=== PATIENT | female | born 1955 | race Caucasian/White ===

== ENCOUNTER 2024-04-18 10:18 | Inpatient (IN) | payer MEDICARE, SELFPAY ==
[2024-04-18 10:18] VITALS: BP 112/57; PULSE 78; RESP 14; TEMP 36.8; O2SAT 96; BMI 31.3
--- NOTE | 2024-04-18 10:25 | RAD_ITS ---
STUDY: X-RAY - PELVIS AND LEFT HIP REASON FOR EXAM: Female, 69 years old. Fall w/ left hip pain TECHNIQUE: 3 views of the pelvis and hip. COMPARISON: None. FINDINGS: There is a non-specific bowel gas pattern. Normal visualized soft tissue structures. Normal bilateral iliac wings, sacroiliac joints and visualized sacrum. Normal bilateral superior and inferior pubic rami. Normal pubic symphysis. Normal bilateral ischial tuberosities. Nondisplaced left intertrochanteric fracture. RAD/HIP, UNI W/ Pelvis 2-3 Views IMPRESSION: Nondisplaced left intertrochanteric fracture. Electronically Signed: Irwin Oliveira MD at 11:32 EDT ,
--- NOTE | 2024-04-18 10:25 | RAD_ITS ---
STUDY: X-RAY CHEST REASON FOR EXAM: Female, 69 years old. Fall w/ left rib cage pain TECHNIQUE: Single AP portable view of the chest. COMPARISON: None. FINDINGS: The lungs are clear and expanded. There is no demonstrated pleural abnormality. Normal size heart. Normal mediastinum and jack. Normal visualized pulmonary arteries. There is atherosclerotic calcification of the aortic arch with tortuosity. Normal visualized thoracic spine. Normal visualized ribs, clavicles, and shoulders. There is no demonstrated abnormality of the visualized soft tissue structures of the upper abdomen. RAD/Chest 1 View IMPRESSION: Normal x-ray examination of the chest. Electronically Signed: Irwin Oliveira MD at 11:33 EDT ,
--- NOTE | 2024-04-18 10:26 | ED.VIS.LOWEX ---
HPI History of Present Illness HPI Narrative: 69-year-old female history of osteoporosis and prior uterine cancer with a hysterectomy. Tripped and fell today on her back patio just prior to arrival injuring her left lateral rib cage and left hip. Brought in by squad. Treated with IV fentanyl prior to arrival. Denies hitting her head. No LOC. No prefall illness. Denies other complaints. Chief Complaint: Lower Extremity Injury Informant: patient and family Occured/Mechanism Mechanism/Context: Yes injury and Yes blunt trauma Onset/Context/Timing Onset: Today Context: Sudden Onset Timing: Continuous Quality of Pain: Sharp Current Severity: Moderate Maximum Severity: Moderate Associated Symptoms Associated Symptoms: Negative for Parasthesia or Weakness Narrative Narrative: 69-year-old female fell on her back patio injuring her left hip and left rib cage. No LOC. No head injury. She is on no blood thinners. Prior similar symptoms: No Recent Illness/Hospitalization: No PFSH PFSH Medical History Uterine cancer Home Medications ?Medication ?Instructions ?Recorded ?Last Taken ?Type cholecalciferol (vitamin D3) 125 125 mcg PO DAILY 04/18/24 04/17/24 History mcg (5,000 unit) tablet (Vitamin D3) famotidine 20 mg tablet 20 mg PO DAILY 04/18/24 04/17/24 History multivitamin (Daily Multi-Vitamin 1 tab PO DAILY 04/18/24 04/17/24 History tablet) omega 7-qkn-evh-fish oil 1,200 mg 1 cap PO DAILY 04/18/24 04/17/24 History (144 mg-216 mg) capsule (Fish Oil) omeprazole 20 mg capsule,delayed 20 mg PO DAILY 04/18/24 04/17/24 History release simvastatin 20 mg tablet 20 mg PO QHS 04/18/24 04/17/24 History varenicline 0.5 mg (11)-1 mg (42) See Rx Instructions PO .COMPLEX 04/18/24 04/18/24 History tablets in a dose pack SMOKING CESSATION vitamin E 268 mg (400 unit) capsule 268 mg PO DAILY 04/18/24 04/17/24 History Allergy/AdvReac Type Severity Reaction Status Date / Time amoxicillin Allergy Hives Verified 04/18/24 10:19 Penicillins (PCN) Allergy Hives Verified 04/18/24 10:19 Social History Smoking Status: Unknown if ever smoked ROS ROS ED ROS Narrative Patient denies recent illness. Constitutional Constitutional ED: Denies chills or fever(s) Eyes Eyes: Denies blurry vision ENT ENT ED: Denies ear pain Cardiovascular Cardiovascular: Denies chest pain Respiratory/Chest Respiratory/Chest: Denies cough or dyspnea Gastrointestinal Gastrointestinal: Denies abdominal pain Genitourinary Genitourinary ED: Denies dysuria or hematuria Musculoskeletal Musculoskeletal: Denies arthralgias Integumentary Denies abscess Neurologic Neurologic: Denies headache(s) Psychiatric Psychiatric: Denies anxiety Endocrine Endocrinology: Denies polydipsia Hematologic/Lymphatic Hematologic/Lymphatic: Denies easy bleeding Allergic/Immunologic Allergic/Immunologic ED: Denies mouth swelling or tongue swelling EXAM Physical Exam Narrative Exam Narrative: 69-year-old female sitting upright in bed. Vital signs are stable afebrile. Pulse ox 96% on room air no hypoxia. H EENT exam pupils round reactive light. No trauma to her face or scalp. Nontender. No hematomas. Neck nontender. Trachea midline. Back and spine nontender. Lungs clear to auscultation bilaterally. Heart regular rhythm rate about 80 no murmur. Left lateral anterior lower rib cage tenderness. No ecchymosis or bruising. No subcu air or crepitance. Abdomen is soft and nontender. No bruising. No peritoneal signs. Pelvic girdle she has left hip tenderness. She has pain with any attempted passive or active range of motion left hip. She has limited range of motion of the left hip. Right hip is nontender. Left lower extremity appears to be shortened and rotated. Left knee lower leg ankle and foot are nontender. Normal sensation. Right lower extremities nontender normal range of motion. Normal strength. Neurologically she is awake and alert no focal motor deficits. Answering questions and following commands. Const Vital Signs: 04/18/24 10:18 04/18/24 11:42 Temperature 98.3 F 98 F Temperature Source Oral Pulse Rate 78 74 Respiratory Rate 14 14 Blood Pressure 112/57 L 114/51 L Blood Pressure Mean 75 72 Pulse Ox 96 97 Oxygen Delivery Method Room Air Positive well nourished and well developed; Negative for obese, cachectic, contractures or unkempt General Appearance ED: well developed; Negative for unkempt, cachectic, contractures or NAD Nutritional Appearance: Negative for cachectic or obese HEENT Reports moist mucous membranes normocephalic and atraumatic; Negative for trauma or tenderness Eyes PERRL Neck full ROM and supple Thyroid: Negative for tender Lymph Lymphatic: Negative for other Chest Wall inspection of chest normal; Negative for palpation of chest normal Chest Narrative: Left lateral and left lower anterior chest wall tenderness. Resp normal respiratory effort, no retractions and clear to auscultation bilaterally Auscultation: Negative for rales, rhonchi, wheezes or diminished lung sounds Cardio regular rate, regular rhythm, S1 normal heart sound, S2 normal heart sound and no murmurs Rate: Negative for bradycardia or tachycardic Rhythm: Negative for abnormal rhythm Bruits: Negative for other GI non-tender, non-distended and no masses Inspection: Negative for abdominal distention Auscultation: normoactive bowel sounds Palpation: soft; Negative for tender, guarding or rebound tenderness present Back/Spine no CVA tenderness General Back: Negative for CVA tenderness Cervical Spine: Negative for cervical spine tenderness Thoracic Spine / Upper Back: Negative for thoracic spinal tenderness Lumbar Spine / Lower Back: Negative for lumbar spinal tenderness Extremity normal to inspection and full ROM Extremity Narrative: Left hip tender. Decreased range of motion. Shortened and rotated. Tender to palpation. Left lower leg and foot nontender neurovascular intact. Neuro oriented x3 and CN's II-XII intact bilaterally Sensorium / Orientation: alert, oriented to person, oriented to place and oriented to time; Negative for orientation impaired, confused, lethargic or stuporous Motor Exam: strength 5/5 throughout Psych mental status grossly normal Appearance: Negative for unkempt Speech: No other Mood & Affect: Negative for anxious Skin no wounds Lesions: no lesions Rashes: no rashes Trauma: Negative for laceration or puncture MDM MDM MDM Narrative Medical decision making narrative: 69-year-old female fall with concern for a left hip fracture or dislocation. Also injured her left lateral rib cage concern for a left rib fracture versus chest wall contusion. X-rays are being obtained. Treated with morphine for pain and Zofran to prevent nausea. Repeat exam patient is doing well she was given another dose of morphine after having x-rays performed. She was instructed she has a left inner troches nondisplaced hip fracture. I did speak to Dr. Zain Caldwell and even though is not on-call he was willing to accept the patient. Hospitalist is on page for admission. Patient and family were very appreciative that the patient could stay here and be treated. Lab Data Attestation: I reviewed the patient's lab results. Lab results narrative: CBC shows white count 14.9. H&H 14 and 43. Platelets 392. PT/INR 13 and 1. Electrolytes show a gap of 6. BUN and creatinine are 19 and 0.9. Glucose 108. Labs: Laboratory Results - last 24 hr 04/18/24 10:05 WBC 14.9 H RBC 4.35 Hgb 14.4 Hct 43.8 MCV 100.7 H MCH 33.1 H MCHC 32.9 RDW Std Deviation 46.2 H RDW Coeff of Norma 12.3 Plt Count 392 MPV 9.9 Immature Gran % (Auto) 0.700 Neut % (Auto) 66.1 Lymph % (Auto) 19.3 [place] % (Auto) 6.5 Eos % (Auto) 6.9 H Baso % (Auto) 0.5 Absolute Neuts (auto) 9.8 H Absolute Lymphs (auto) 2.87 Nucleated RBC % 0 PT 13.0 INR 1.0 Sodium 142 Potassium 3.8 Chloride 108 H Carbon Dioxide 28.0 Anion Gap 5 BUN 19 H Creatinine 0.93 Estim Creat Clear Calc 54.45 Est GFR (MDRD) Af Amer 78 Est GFR (MDRD) Non-Af 64 BUN/Creatinine Ratio 20.5 H Glucose 108 H Calcium 9.7 Radiography Diagnostic Testing: Clinical Impression(s) from Imaging Studies Chest X-Ray 04/18/24 10:25 IMPRESSION: Normal x-ray examination of the chest. Electronically Signed: Irwin Oliveira MD at 11:33 EDT , Hip/Pelvis X-Ray 04/18/24 10:25 IMPRESSION: Nondisplaced left intertrochanteric fracture. Electronically Signed: Irwin Oliveira MD at 11:32 EDT , Discharge Plan Dx/Rx/DC Orders Clinical Impression: Fall, Closed fracture of left hip, Contusion of rib on left side, History of osteoporosis Disposition Disposition: Acute Care Hospital [facility]
[2024-04-18] MEDS: Ondansetron 4 MG/2 ML Vial IV (10:39)
[2024-04-18] MEDS: morphine 8 MG/ML Syringe 6 MG IV ×2 (10:39→11:25)
[2024-04-18 11:42] VITALS: BP 114/51; PULSE 74; RESP 14; TEMP 36.6; O2SAT 97
[2024-04-18 11:46] LABS: Absolute Lymphocyte Count 2.87 X10^3/uL (0.83-4.51); Absolute Neutrophil Count 9.8 X10^3/uL (2.0-7.7); Basophil# 0.08 X10^3/uL; Basophil% 0.5 % (0-1); Eosinophil# 1.02 X10^3/uL; Eosinophils% 6.9 % (0-5); Hematocrit 43.8 % (37-47); Hemoglobin 14.4 g/dL (12.0-15.0); Lymphocyte # 2.87 X10^3/ul (0.83-4.51); Lymphocyte % 19.3 % (19-41); Mean Corp Hgb Conc 32.9 g/dL (32-36); Mean Corpuscular Hgb 33.1 pg (27.0-32.0); Mean Corpuscular Volume 100.7 fL (81-99); Mean Platelet Vol. 9.9 fl (6.2-12.0); Monocyte# 0.97 X10^3/uL; Monocyte% 6.5 % (0-10); NRBC Flagged by Analyzer 0 % (0-5); Neutrophil # 9.82 X10^3/uL (2.7-7.7); Neutrophil % 66.1 % (47-70); Platelet Count 392 K/mm3 (150-450); RBC Distribution Width CV 12.3 % (11.6-14.6); RBC Distribution Width SD 46.2 fl (35.1-43.9); Red Blood Count 4.35 M/mm3 (4.2-5.4); White Blood Count 14.9 K/mm3 (4.4-11.0)
[2024-04-18 12:02] LABS: Anion Gap 5 (5-15); BUN 19 mg/dL (7-18); BUN/Creat Ratio 20.5 RATIO (10-20); Calcium,Total 9.7 mg/dL (8.5-10.1); Chloride 108 mmol/L (98-107); Creatinine, Serum 0.93 mg/dL (0.55-1.02); EST Glomerular Filtration Rate 64 mL/min (>60); Est Glom Filt Rate - Afr Amer 78 mL/min (>60); Estimated Creatinine Clearance 54.45 ml/min; Glucose 108 mg/dL (74-106); Potassium 3.8 mmol/L (3.5-5.1); Sodium Level 142 mmol/L (136-145)
[2024-04-18 12:18] VITALS: BP 108/78; PULSE 68
--- NOTE | 2024-04-18 12:46 | PCM.HP.STD ---
HPI - General General Date of Service: 04/18/24 Chief Complaint: Hip pain HPI Narrative ADRIANO ROSEN, is a 69 F who presents with hip pain. Patient was walking when she tripped over a brick landed on her left side. Patient experienced pain in her hip as well as her ribs. She presented to the emergency room where was found have a left intertrochanteric hip fracture. ED reached out to Dr. Caldwell who would see the patient in consultation on the . Patient denies hitting her head. [facility] Medical History (Updated 04/18/24 @ 12:[address] Tian Amaro DO) Osteoporosis COPD exacerbation Uterine cancer Home Medications ?Medication ?Instructions ?Recorded ?Last Taken ?Type cholecalciferol (vitamin D3) 125 125 mcg PO DAILY 04/18/24 04/17/24 History mcg (5,000 unit) tablet (Vitamin D3) famotidine 20 mg tablet 20 mg PO DAILY 04/18/24 04/17/24 History multivitamin (Daily Multi-Vitamin 1 tab PO DAILY 04/18/24 04/17/24 History tablet) omega 8-gae-tgi-fish oil 1,200 mg 1 cap PO DAILY 04/18/24 04/17/24 History (144 mg-216 mg) capsule (Fish Oil) omeprazole 20 mg capsule,delayed 20 mg PO DAILY 04/18/24 04/17/24 History release simvastatin 20 mg tablet 20 mg PO QHS 04/18/24 04/17/24 History varenicline 0.5 mg (11)-1 mg (42) See Rx Instructions PO .COMPLEX 04/18/24 04/18/24 History tablets in a dose pack SMOKING CESSATION vitamin E 268 mg (400 unit) capsule 268 mg PO DAILY 04/18/24 04/17/24 History Allergy/AdvReac Type Severity Reaction Status Date / Time amoxicillin Allergy Hives Verified 04/18/24 10:19 Penicillins (PCN) Allergy Hives Verified 04/18/24 10:19 Social History (Updated 04/18/24 @ 12:[address] Tian Amaro DO) Smoking Status: Current every day smoker alcohol intake: former substance use type: does not use ROS ROS Narrative Does get short of breath with exertion but has been chronic. No chest pain with activity. All review of systems were negative except as mentioned above in the history of present illness and the other review of systems. Vital Signs Vital Signs Vital Signs: 04/18/24 10:18 04/18/24 11:42 04/18/24 12:18 Temperature 36.8 C 36.6 C Temperature Source Oral Pulse Rate 78 74 68 Respiratory Rate 14 14 Blood Pressure 112/57 L 114/51 L 108/78 Blood Pressure Mean 75 72 88 Pulse Ox 96 97 Oxygen Delivery Method Room Air Weight Weight: 75.2 kg Body Mass Index (BMI) 31.3 Physical Exam Const alert and no apparent distress HEENT normocephalic and head/scalp atraumatic Neck no lymphadenopathy Neck Narrative: No thyromegaly Resp normal respiratory effort, no retractions, no use of accessory muscles and clear to auscultation bilaterally Cardio regular rate, regular rhythm, S1 normal heart sound and S2 normal heart sound GI normal to inspection, nondistended, normoactive bowel sounds, soft to palpation, non-tender and non-distended Extremity Extremity Narrative: Shortened left lower extremity compared to the right. No edema. Neuro moves all extremities Sensorium / Orientation: awake Results Lab / Micro Data 04/18/24 10:05 04/18/24 10:05 Labs: Laboratory Results - last 24 hr 04/18/24 10:05: WBC 14.9 H, RBC 4.35, Hgb 14.4, Hct 43.8, MCV 100.7 H, MCH 33.1 H, MCHC 32.9, RDW Std Deviation 46.2 H, RDW Coeff of Norma 12.3, Plt Count 392, MPV 9.9, Immature Gran % (Auto) 0.700, Neut % (Auto) 66.1, Lymph % (Auto) 19.3, [place] % (Auto) 6.5, Eos % (Auto) 6.9 H, Baso % (Auto) 0.5, Absolute Neuts (auto) 9.8 H, Absolute Lymphs (auto) 2.87, Nucleated RBC % 0, PT 13.0, INR 1.0, Sodium 142, Potassium 3.8, Chloride 108 H, Carbon Dioxide 28.0, Anion Gap 5, BUN 19 H, Creatinine 0.93, Estim Creat Clear Calc 54.45, Est GFR (MDRD) Af Amer 78, Est GFR (MDRD) Non-Af 64, BUN/Creatinine Ratio 20.5 H, Glucose 108 H, Calcium 9.7 Imaging Radiology Impression Chest X-Ray 04/18/24 10:25 IMPRESSION: Normal x-ray examination of the chest. Electronically Signed: Irwin Oliveira MD at 11:33 EDT , Hip/Pelvis X-Ray 04/18/24 10:25 IMPRESSION: Nondisplaced left intertrochanteric fracture. Electronically Signed: Irwin Oliveira MD at 11:32 EDT , Assessment & Plan Assessment/Plan (1) Closed fracture of left hip: PLAN: Status post mechanical fall. Bed rest. Consult Ortho. Check 25-hydroxy vitamin D level. Patient medically cleared to proceed with surgery. PT OT evaluate and treat postoperatively. Discussed with the patient and her family member, said I would dissipate her likely requiring senior living facility when things are all sudden done but will see how patient will spines with therapy. PLAN: Plan Chronic conditions COPD: Currently stable. Osteoporosis. Will be checking a 25-hydroxy vitamin D level because of hip fracture. VTE prophylaxis: SCDs for now. CODE STATUS:: Discussed with the patient. She wishes to be full code. Charges/Coding Visit Charges Inpatient E&M: 02855 Init Hosp L2
--- NOTE | 2024-04-18 13:00 | NURSING ---
MED SURG FALL, LEFT HIP FX, LEFT RIB CONTUSION BLACK
[2024-04-18 13:30] VITALS: BP 120/95; PULSE 78; RESP 18; TEMP 37.2; O2SAT 98
[2024-04-18 13:38] VITALS: BMI 23.8
[2024-04-18 14:13] LABS: AST(SGOT) 28 U/L (15-37); Alanine Aminotransfer ALT/SGPT 24 U/L (13-56); Albumin, Serum 3.5 g/dL (3.2-5.0); Alkaline Phosphatase 88 U/L (45-117); Anion Gap 6 (5-15); BUN 19 mg/dL (7-18); BUN/Creat Ratio 23.2 RATIO (10-20); Calcium,Total 9.5 mg/dL (8.5-10.1); Chloride 108 mmol/L (98-107); Creatinine, Serum 0.82 mg/dL (0.55-1.02); EST Glomerular Filtration Rate 74 mL/min (>60); Est Glom Filt Rate - Afr Amer 89 mL/min (>60); Estimated Creatinine Clearance 57.49 ml/min; Globulin 3.5 g/dL (2.2-4.2); Glucose 111 mg/dL (74-106); Sodium Level 138 mmol/L (136-145)
[2024-04-18 14:14] LABS: Vitamin D,25 Hydroxy 90.8 ng/mL
[2024-04-18] MEDS: oxyCODONE 5 MG Tablet PO ×2 (15:23→20:45)
[2024-04-18] MEDS: Morphine 2 MG/ML Syringe IV (17:36)
[2024-04-18 20:24] VITALS: BP 121/64; PULSE 92; RESP 18; TEMP 36.9; O2SAT 92
[2024-04-18] MEDS: MELATONIN 10 MG TABLET 5 MG PO (20:45)
[2024-04-18] MEDS: Acetaminophen 325 MG Tablet 650 MG PO (20:45)
[2024-04-18] MEDS: Senna/Docusate Sodium 1 Tablet 2 TABLET PO (20:46)
[2024-04-18] MEDS: Atorvastatin Calcium 10 MG Tablet PO (20:46)
[2024-04-18] MEDS: Varenicline 0.5 MG Tablet PO (20:46)
[2024-04-19] VITALS (14 sets, daily range): BP systolic 113–157; BP diastolic 49–88; PULSE 74–95; RESP 16–18; TEMP 36.3–37.4; O2SAT 2–98; BMI 23.7
[2024-04-19] MEDS: Morphine 2 MG/ML Syringe IV ×2 (02:56→12:53)
[2024-04-19] MEDS: 0.9% Saline Lock 10 ML Syringe IV (02:56)
[2024-04-19] MEDS: oxyCODONE 5 MG Tablet PO (05:34)
[2024-04-19] MEDS: Acetaminophen 325 MG Tablet 650 MG PO (05:35)
--- NOTE | 2024-04-19 06:00 | EKG12_ITS ---
Test Reason : PRE-OP Blood Pressure : / mmHG Vent. Rate : 088 BPM Atrial Rate : 000 BPM P-R Int : 000 ms QRS Dur : 076 ms QT Int : 364 ms P-R-T Axes : 000 050 075 degrees QTc Int : 440 ms Normal sinus rhythm Cannot rule out Septal infarct , age undetermined Abnormal ECG No previous ECGs available Confirmed by Sergei Myles ([id number]), dictionary editor KILLIAN DOS SANTOS ([id number]) on 04/22/2024 1:39:32 PM Referred By: AROLDO Confirmed By:Sergei Myles
[2024-04-19 06:18] LABS: Absolute Lymphocyte Count 1.84 X10^3/uL (0.83-4.51); Absolute Neutrophil Count 6.1 X10^3/uL (2.0-7.7); Basophil# 0.04 X10^3/uL; Basophil% 0.4 % (0-1); Eosinophil# 0.16 X10^3/uL; Eosinophils% 1.7 % (0-5); Hematocrit 36.2 % (37-47); Lymphocyte # 1.84 X10^3/ul (0.83-4.51); Lymphocyte % 19.8 % (19-41); Mean Corp Hgb Conc 33.1 g/dL (32-36); Mean Corpuscular Hgb 33.3 pg (27.0-32.0); Mean Corpuscular Volume 100.6 fL (81-99); Mean Platelet Vol. 9.1 fl (6.2-12.0); Monocyte# 1.15 X10^3/uL; Monocyte% 12.4 % (0-10); NRBC Flagged by Analyzer 0 % (0-5); Neutrophil # 6.07 X10^3/uL (2.7-7.7); Neutrophil % 65.4 % (47-70); Platelet Count 329 K/mm3 (150-450); RBC Distribution Width CV 12.3 % (11.6-14.6); RBC Distribution Width SD 46.1 fl (35.1-43.9); White Blood Count 9.3 K/mm3 (4.4-11.0)
--- NOTE | 2024-04-19 08:06 | PN.HOSP_ITS ---
Reason for Visit Reason for Visit: Diagnoses Fracture of unspecified part of neck of left femur, initial encounter for closed fracture (04/18/24) Subjective Subjective Finally able to get into a comfortable position. Objective Data Objective Data Vital Signs: Vital Signs Temp Pulse Resp BP Pulse Ox O2 Del Method 36.3 C L 83 16 118/52 L 92 Room Air 04/19/24 07:42 04/19/24 07:42 04/19/24 07:42 04/19/24 07:42 04/19/24 07:42 04/19/24 07:42 Oxygen Delivery Method Room Air Weight: 63.004 kg Body Mass Index (BMI) 23.8 Intake & Output: Intake and Output for Last 24 Hours 04/17/24 04/18/24 04/19/24 23:59 23:59 23:59 Intake Total 500 / 700 200 / 200 Output Total 375 / 375 Balance 500 / 700 -175 / -175 Lab / Micro Data 04/19/24 05:40 04/18/24 13:40 Labs: Laboratory Results - last 24 hr 04/18/24 10:05: WBC 14.9 H, RBC 4.35, Hgb 14.4, Hct 43.8, MCV 100.7 H, MCH 33.1 H, MCHC 32.9, RDW Std Deviation 46.2 H, RDW Coeff of Norma 12.3, Plt Count 392, MPV 9.9, Immature Gran % (Auto) 0.700, Neut % (Auto) 66.1, Lymph % (Auto) 19.3, [place] % (Auto) 6.5, Eos % (Auto) 6.9 H, Baso % (Auto) 0.5, Absolute Neuts (auto) 9.8 H, Absolute Lymphs (auto) 2.87, Nucleated RBC % 0, PT 13.0, INR 1.0, Sodium 142, Potassium 3.8, Chloride 108 H, Carbon Dioxide 28.0, Anion Gap 5, BUN 19 H, Creatinine 0.93, Estim Creat Clear Calc 54.45, Est GFR (MDRD) Af Amer 78, Est GFR (MDRD) Non-Af 64, BUN/Creatinine Ratio 20.5 H, Glucose 108 H, Calcium 9.7 04/18/24 13:40: Sodium 138, Potassium 4.0, Chloride 108 H, Carbon Dioxide 23.0, Anion Gap 6, BUN 19 H, Creatinine 0.82, Estim Creat Clear Calc 57.49, Est GFR (MDRD) Af Amer 89, Est GFR (MDRD) Non-Af 74, BUN/Creatinine Ratio 23.2 H, G lucose 111 H, Calcium 9.5, Total Bilirubin 0.70, AST 28, ALT 24, Alkaline Phosphatase 88, Total Protein 7.0, Albumin 3.5, Globulin 3.5, Albumin/Globulin Ratio 1.0, Vitamin D 25-Hydroxy 90.8 04/19/24 05:40: WBC 9.3, RBC 3.60 L, Hgb 12.0, Hct 36.2 L, MCV 100.6 H, MCH 33.3 H, MCHC 33.1, RDW Std Deviation 46.1 H, RDW Coeff of Norma 12.3, Plt Count 329, MPV 9.1, Immature Gran % (Auto) 0.300, Neut % (Auto) 65.4, Lymph % (Auto) 19.8, [place] % (Auto) 12.4 H, Eos % (Auto) 1.7, Baso % (Auto) 0.4, Absolute Neuts (auto) 6.1, Absolute Lymphs (auto) 1.84, Nucleated RBC % 0 Radiography Diagnostic Testing: Radiology Impression Chest X-Ray 04/18/24 10:25 IMPRESSION: Normal x-ray examination of the chest. Electronically Signed: Irwin Oliveira MD at 11:33 EDT , Hip/Pelvis X-Ray 04/18/24 10:25 IMPRESSION: Nondisplaced left intertrochanteric fracture. Electronically Signed: Irwin Oliveira MD at 11:32 EDT , Physical Exam Const alert and no apparent distress HEENT head/scalp atraumatic and moist oral mucous membranes Resp normal respiratory effort and no retractions Extremity normal to inspection and full ROM Neuro Sensorium / Orientation: awake and alert Assessment & Plan Assessment/Plan (1) Closed fracture of left hip: PLAN: Plan for OR today. Vitamin D level WNL. Medically stable for surgery. PLAN: Plan Chronic conditions * COPD: Currently stable. * Osteoporosis. * 25 OH-d level 90.8: no replacement needed. VTE prophylaxis: SCDs for now. CODE STATUS:: Discussed with the patient. She wishes to be full code. Charges/Coding Visit Charges Inpatient E&M: 35999 Subs Hosp L1
--- NOTE | 2024-04-19 10:18 | CASEMGMT ---
HEIKE FERNANDEZ Assessment Face to Face with patient for initial transition planning/care coordination assessment. RN JIM introduced self and role at [facility], pt voices understanding. Pt is A&Ox4 and is resting comfortably in bed and is calm. Care providers, pharmacy, and demographics verified. Admitting dx: Hip Fx LACE Strata: 1 PCP: Jenn Wisdom Specialists: Pt states that she sees a siphoner and a atlassian administrator but cannot recall the names Preferred Pharmacy: [facility] Insurance: [employer] [facility] Prescription Benefit: Yes LNOK: Chelsey Richter (FREDY), Joe Richter (Son [place]), Adult Son Living Arrangements: Pt lives with her adult son in a 2 story home with 3 steps to enter ADLs/IADLs: Reports ind at [facility] Transportation: Self normally, family. Denies concerns DME: BP monitor. Denies further uses. Pt may benefit from a FWW at [place] A verbal list of local in-network DME companies provided to the pt at this time. Pt prefers [facility]. HHC/SNF: Denies history or needs Pt?s goal: Home Plan: TBD. Hip Surgery today at 1530. PT to evaluate subsequently. Pt plans to DC home with her family support once medically ready. Pt states that her Son, YOVANY, and daughter will be able to help the pt at home. CM to follow for FWW, HH, and/or OP Tx needs. Report given to TEJAS BURROUGHS CM. Kenia Sheffield RN, CM
--- NOTE | 2024-04-19 10:30 | CASEMGMT ---
Discharge Planning A list of HH providers including quality and resource use data and consistent with the patient's preferred geographic region, medical needs, and insurance network was created in [employer] Guide.? This list was provided to the Luana Engle Discharge Planning Asst.
--- NOTE | 2024-04-19 13:57 | PRE.ANES_ITS ---
ASA Classification* ASA Classification ASA Classification: 2 Assessment & Plan Anesthesia* Anesthesia Assessment Anesthesia Assessment: Discussed sedation and/or anesthesia options, risks, benefits, and alternatives with patient/parents/legal guardian/POA. Questions invited. The patient/parents/legal guardian/POA seems to understand and agrees to proceed with anesthesia plan. Reviewed the physical assessment, medical history, allergy history and patient home medications list prior to surgery/procedure/anesthetic and documented any changes. Performed airway and anesthesia risk assessments. Anesthesia Type Anesthesia Type: General Anesthesia Focused Assessment* Temperature: 97.3 F Pulse Rate: 83 Blood Pressure: 118/52 Respiratory Rate: 16 Pulse Ox: 92 Airway Assessment Mouth opens: >3 cm Mallampati Score: II Focused Labs Anesthesia Preop lab: CBC WBC 9.3 K/mm3 (4.4-11.0) 04/19/24 05:40 RBC 3.60 M/mm3 (4.2-5.4) L 04/19/24 05:40 Hgb 12.0 g/dL (12.0-15.0) 04/19/24 05:40 Hct 36.2 % (37-47) L 04/19/24 05:40 Plt Count 329 K/mm3 (150-450) 04/19/24 05:40 CHEMISTRY Potassium 4.0 mmol/L (3.5-5.1) 04/18/24 13:40 Sodium 138 mmol/L (136-145) 04/18/24 13:40 BUN 19 mg/dL (7-18) H 04/18/24 13:40 Creatinine 0.82 mg/dL (0.55-1.02) 04/18/24 13:40 Glucose 111 mg/dL (74-106) H 04/18/24 13:40 COAG PT 13.0 SECONDS (11.7-14.9) 04/18/24 10:05 Pre-Assessment Diagnosis/Proposed Procedure Planned Operative Procedure(s): IM Zen inter Troch Nail left hip fx Anesthesia History Anesthesia History - equal opportunity specialist: Anesthesia History - equal opportunity specialist Hx Hospitalization Any Problems With Anesthesia Yes: trouble waking up s/p 04/18/24 20:25 hysterectomy Cholinesterase deficiency No 04/18/24 20:25 You/Your Family Experience No 04/18/24 20:25 fever (hyperthermia) with Relationship Recent Exposure to Contagious No 04/18/24 20:25 Disease Does patient have nerve No 04/18/24 20:25 stimulator Patient instructed to have device shut off --Does patient have Pacemaker or ICD? When Was Last Pacemaker Check QUESTION #4 FULL TEXT: You/Your Family Experience fever (hyperthermia) with Anesthesia Last Oral Intake Last Oral intake: Last Oral Intake NPO since Meds taken in AM with sips of water? Meds patient instructed to take am of surgery PONV PONV - equal opportunity specialist: PONV - equal opportunity specialist Female HX of Motion Sickness HX of N/V After Surgery Non-Smoker Duration of Surgery greater than 60 minutes Number of Risk Factors PONV Score Height & Weight Height & Weight: Anesthesia: Height & Weight Height 5 ft 4 in 04/18/24 13:38 Weight: 63.004 kg 04/18/24 13:38 Body Mass Index (BMI) 23.8 04/18/24 13:38 Respiratory Assessment Respiratory Assessment - equal opportunity specialist: Respiratory Tract Infection Hx - equal opportunity specialist Hx Respiratory Tract Infection No 04/18/24 20:25 STOP Sleep Apnea STOP Sleep Apnea - equal opportunity specialist: STOP Sleep Apnea - equal opportunity specialist Hx Hypertension No 04/18/24 13:38 Hx Sleep Apnea No 04/18/24 13:38 CPAP BIPAP Do you snore loudly (louder No 04/18/24 13:38 than talking or can be heard Do you often feel tired/ Yes 04/18/24 13:38 fatigued/ sleepy during daytime? Has anyone observed you stop No 04/18/24 13:38 breathing during sleep? STOP Results Negative 04/18/24 13:38 QUESTION #5 FULL TEXT : Do you snore loudly (louder than talking or can be heard through closed doors)? 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 confused, unrespo /Reproduction History /Reproductive History - equal opportunity specialist: /Reproductive Hx- equal opportunity specialist Hx Now No 04/18/24 20:25 Gestational Age (in weeks): EDC: Hx Hx Para Hx Section SAB No 04/18/24 20:25 Active Medications Active Medications: Current Medications Generic Name Dose Route Start Last Admin Trade Name Freq PRN Reason Stop Dose Admin Acetaminophen 650 mg 04/18/24 13:26 04/19/24 05:35 Acetaminophen 325 Mg Tablet PO 650 mg Q6H PRN PRN Administration Pain 1-10 Or Fever >100.7 Atorvastatin Calcium 10 mg 04/18/24 22:00 04/18/24 20:46 Atorvastatin Calcium 10 Mg Tablet PO 10 mg QHS GEOVANNA Administration Cholecalciferol 125 mcg 04/19/24 10:00 Cholecalciferol (Vit D3) 125 Mcg Capsule (5,000 Units) PO DAILY GEOVANNA Famotidine 20 mg 04/19/24 10:00 Famotidine 20 Mg Tablet PO DAILY GEOVANNA Sodium Chloride 100 mls @ 15 mls/hr 04/18/24 13:46 IV .Q6H40M PRN Saline Flush Sodium Chloride 100 mls @ 15 mls/hr 04/18/24 13:46 IV .Q6H40M PRN Additional IVPB Infusion Cefazolin Sodium 2 gm/ N/A 20 mls @ 400 mls/hr 04/19/24 15:30 IV 04/19/24 15:32 PREOP ONE Ibuprofen 600 mg 04/18/24 13:26 Ibuprofen 600 Mg Tablet PO Q6H PRN PRN Pain Score 1-10 Melatonin 5 mg 04/18/24 17:25 04/18/24 20:45 Melatonin 10 Mg Tablet PO 5 mg QHS PRN Administration SLEEP Morphine Sulfate 2 - 4 mg 10/10/24 13:26 04/19/24 12:53 Morphine 2 Mg/Ml Syringe IV 2 mg Q3H PRN PRN Administration Pain Score 6-10 Ondansetron HCl 4 mg 04/18/24 13:26 Ondansetron 4 Mg/2 Ml Vial IV Q8H PRN PRN NAUSEA/VOMITING Oxycodone HCl 5 mg 04/18/24 13:26 04/19/24 05:34 Oxycodone 5 Mg Tablet PO 5 mg Q4H PRN PRN Administration Pain Score 4-10 Pantoprazole Sodium 20 mg 04/19/24 10:00 Pantoprazole Sodium 20 Mg Tablet PO DAILY [facility] Senna/Docusate Sodium 2 tablet 04/18/24 22:00 04/18/24 20:46 Senna/Docusate Sodium 1 Tablet PO 2 tablet BID GEOVANNA Administration Sodium Chloride 10 - 40 ml 04/18/24 13:46 04/19/24 02:56 0.9% Saline Lock 10 Ml Syringe IV 10 ml UD PRN Administration SALINE FLUSH Varenicline 0.5 mg 04/18/24 22:00 04/18/24 20:46 Varenicline 0.5 Mg Tablet PO 04/21/24 22:01 0.5 mg BID GEOVANNA Administration Varenicline 1 mg 04/22/24 10:00 Varenicline 1 Mg Tablet PO BID [facility] PFSH Medical History (Updated 04/18/24 @ 13:44 by Xiomara Guan) GERD (gastroesophageal reflux disease) Smoker Emphysema lung Osteoporosis COPD exacerbation Uterine cancer Home Medications ?Medication ?Instructions ?Recorded ?Last Taken ?Type cholecalciferol (vitamin D3) 125 125 mcg PO DAILY 04/18/24 04/17/24 History mcg (5,000 unit) tablet (Vitamin D3) famotidine 20 mg tablet 20 mg PO DAILY 04/18/24 04/17/24 History multivitamin (Daily Multi-Vitamin 1 tab PO DAILY 04/18/24 04/17/24 History tablet) omega [id number]-kar-[id number]-fish oil 1,200 mg 1 cap PO DAILY 04/18/24 04/17/24 History (144 mg-216 mg) capsule (Fish Oil) omeprazole 20 mg capsule,delayed 20 mg PO DAILY 04/18/24 04/17/24 History release simvastatin 20 mg tablet 20 mg PO QHS 04/18/24 04/17/24 History varenicline 0.5 mg (11)-1 mg (42) See Rx Instructions PO .COMPLEX 04/18/24 04/18/24 History tablets in a dose pack SMOKING CESSATION vitamin E 268 mg (400 unit) capsule 268 mg PO DAILY 04/18/24 04/17/24 History Allergy/AdvReac Type Severity Reaction Status Date / Time amoxicillin (Amoxicillin) Allergy Rash Verified 04/18/24 13:08 Penicillins (PCN) Allergy Hives Verified 04/18/24 13:08 Surgical History (Updated 04/18/24 @ 20:29 by Sybil Galicia) H/O total hysterectomy Social History (System 04/18/24 @ 13:08 by Екатерина Light) Smoking Status: Current every day smoker tobacco type: cigarettes alcohol intake: former substance use type: does not use Review of Systems (Anesthesia) ROS Narrative System reviewed and no additional complaints, except as documented.
[2024-04-19] MEDS: Ipratropium/Albuterol Sulfate 3 ML AMPUL.NEB INHALATION (14:55)
--- NOTE | 2024-04-19 15:58 | CON.PCM.OR_ITS ---
HPI Consult Data Date of Consult: 04/19/24 HPI Narrative Reason for Consultation: Left hip pain HPI Narrative: ADRIANO ROSEN, is a 69 F with history of COPD who presents with left hip pain. Patient notes she fell off her porch yesterday onto her left side was unable to bear weight. She presented to the emergency department with 10 out of 10 pain was found to have a intertrochanteric hip fracture on the left. She was admitted to the hospital and cleared for surgery overnight. Patient lives at home with her son and his girlfriend. She ambulates independently without walker or cane normally. She lives independently and completes ADLs independently. Patient denies any associated numbness and tingling. She denies a history of DVTs or PEs. She does have a history of uterine cancer but has been cancer free for the last 11 years. Patient localizes her pain to her thigh and groin. Patient is a chronic smoker currently using Chantix to help quit. [facility] Medical History GERD (gastroesophageal reflux disease) Smoker Emphysema lung Osteoporosis COPD exacerbation Uterine cancer Home Medications ?Medication ?Instructions ?Recorded ?Last Taken ?Type cholecalciferol (vitamin D3) 125 125 mcg PO DAILY 04/18/24 04/17/24 History mcg (5,000 unit) tablet (Vitamin D3) famotidine 20 mg tablet 20 mg PO DAILY 04/18/24 04/17/24 History multivitamin (Daily Multi-Vitamin 1 tab PO DAILY 04/18/24 04/17/24 History tablet) omega 8-uqu-tpq-fish oil 1,200 mg 1 cap PO DAILY 04/18/24 04/17/24 History (144 mg-216 mg) capsule (Fish Oil) omeprazole 20 mg capsule,delayed 20 mg PO DAILY 04/18/24 04/17/24 History release simvastatin 20 mg tablet 20 mg PO QHS 04/18/24 04/17/24 History varenicline 0.5 mg (11)-1 mg (42) See Rx Instructions PO .COMPLEX 04/18/24 04/18/24 History tablets in a dose pack SMOKING CESSATION vitamin E 268 mg (400 unit) capsule 268 mg PO DAILY 04/18/24 04/17/24 History Allergy/AdvReac Type Severity Reaction Status Date / Time amoxicillin (Amoxicillin) Allergy Rash Verified 04/18/24 13:08 Penicillins (PCN) Allergy Hives Verified 04/18/24 13:08 Surgical History H/O total hysterectomy Social History Smoking Status: Current every day smoker tobacco type: cigarettes alcohol intake: former substance use type: does not use ROS ROS Narrative 14 point review of systems otherwise negative except for what is mentioned in the HPI. Vital Signs Vital Signs Vital Signs: 04/18/24 20:24 04/18/24 20:35 04/18/24 21:30 Temperature 98.4 F Temperature Source Oral Pulse Rate 92 Pulse Strength Normal (2+) Respiratory Rate 18 Respiratory Effort Normal Non-Labored Respiratory Depth Normal Respiratory Pattern Normal Blood Pressure 121/64 H Blood Pressure Mean 83 Blood Pressure Source Monitor Blood Pressure Position Semi-Fowlers Blood Pressure Location Left Arm Pulse Ox 92 Oxygen Delivery Method Room Air Room Air 04/19/24 02:53 04/19/24 02:55 04/19/24 07:42 Temperature 97.9 F 97.3 F L Temperature Source Oral Oral Pulse Rate 78 83 Pulse Strength Respiratory Rate 16 16 Respiratory Effort Normal Non-Labored Respiratory Depth Normal Respiratory Pattern Normal Blood Pressure 119/57 L 118/52 L Blood Pressure Mean 77 74 Blood Pressure Source Monitor Monitor Blood Pressure Position Semi-Fowlers Semi-Fowlers Blood Pressure Location Left Arm Left Arm Pulse Ox 92 92 Oxygen Delivery Method Room Air Room Air Room Air 04/19/24 13:51 04/19/24 13:57 04/19/24 14:55 Temperature 98.4 F 97.3 F L Temperature Source Oral Pulse Rate 82 83 74 Pulse Strength Respiratory Rate 16 16 16 Respiratory Effort Respiratory Depth Respiratory Pattern Normal Blood Pressure 120/52 L 118/52 L Blood Pressure Mean 74 Blood Pressure Source Monitor Blood Pressure Position Semi-Fowlers Blood Pressure Location Left Arm Pulse Ox 93 92 Oxygen Delivery Method Room Air Weight Weight: 138 lb 14.259 oz Body Mass Index (BMI) 23.7 Physical Exam Const alert and oriented x3 General Appearance: cooperative HEENT normocephalic Eyes PERRL Neck no JVD General: trachea midline Resp normal respiratory effort Cardio Cardio Narrative: Regular pulse rate distally GI non-distended Extremity Extremity Narrative: Left lower extremity: Skin clean, dry, and intact. Limb is externally rotated Motor is intact dorsiflexion, EHL and plantar flexion. Sensation is intact to light touch saphenous, michelle,l superficial peroneal, deep peroneal and tibial distributions. Calves are soft and supple. Skin no rashes or lesions noted and no wounds Neuro CN's II-XII intact bilaterally Psych affect normal Medical Records Data Attestation: I reviewed the patient's medical records Lab / Micro Data Attestation: I reviewed the patient's lab results. 04/19/24 05:40 04/18/24 13:40 Labs: Laboratory Results - last 24 hr 04/19/24 05:40: WBC 9.3, RBC 3.60 L, Hgb 12.0, Hct 36.2 L, MCV 100.6 H, MCH 33.3 H, MCHC 33.1, RDW Std Deviation 46.1 H, RDW Coeff of Norma 12.3, Plt Count 329, MPV 9.1, Immature Gran % (Auto) 0.300, Neut % (Auto) 65.4, Lymph % (Auto) 19.8, [place] % (Auto) 12.4 H, Eos % (Auto) 1.7, Baso % (Auto) 0.4, Absolute Neuts (auto) 6.1, Absolute Lymphs (auto) 1.84, Nucleated RBC % 0, Blood Type A NEGATIVE, Antibody Screen NEGATIVE Imaging Left hip radiographs were reviewed showing a minimally displaced intertrochanteric hip fracture Assessment & Plan Assessment/Plan (1) Closed fracture of left hip: PLAN: Natural history of the disease process and treatment options were discussed the patient including operative and nonoperative interventions. Did recommend cephalomedullary nail for this patient's current injury. Description of the procedure was given to the patient as well as her son-in-law who is at bedside and contributed to her history. Additionally, we discussed risk and benefit of the procedure which include but were not limited to blood loss, DVTs, PEs, nervous damage complex, the risk of anesthesia, loss of life, hardware failure, malunion, nonunion, screw cut out and intraoperative or postoperative fracture around the implants. Patient demonstrates an understanding. She is currently cleared by medicine. Antibiotics ordered on-call to the operating room and the patient is NPO. Will proceed with surgery this evening as planned upon admission. Patient is agreeable to this treatment plan and wishes to move forward.
[2024-04-19] MEDS: Cefazolin 2 GM in Syringe IV (17:13)
--- NOTE | 2024-04-19 17:20 | RAD_ITS ---
EXAM: XR LEFT HIP WITH PELVIS WHEN PERFORMED, 1 VIEW CLINICAL INDICATION: FX TECHNIQUE: Frontal view of the left hip with pelvis when performed. COMPARISON: No relevant prior studies available. FINDINGS: BONES/JOINTS: Images were obtained intraoperatively. These show placement of an intramedullary reji and screw across an intertrochanteric fracture. No destructive or sclerotic lesions. Note that overlapping bowel shadows may however obscure fine detail. Sacroiliac joint is unremarkable. No widening of the pubic symphysis. The articular structures are unremarkable. SOFT TISSUES: Unremarkable. No soft tissue swelling or gas. RAD/Hip 1 view with Pelvis IMPRESSION: ORIF of intertrochanteric fracture. Electronically Signed: Michael Singleton MD at 19:16 EDT ,
--- NOTE | 2024-04-19 18:15 | PCM.POST.ANE ---
Anesthesia: Postop Eval I Current Vital Signs Temperature: 99 F Pulse Rate: 92 Blood Pressure: 114/74 Respiratory Rate: 16 Pulse Ox: 96 Assessment Airway patent: Yes Spontaneous unlabored respirations: Yes nausea: No Vomiting: No Anesthesia Complication: No Fluid Hydration Crystalloid volume administer (ml): 10 Total IV fluid infused: 10 Progress Note Anesthesia document: Postop Eval 1 completed: Yes
--- NOTE | 2024-04-19 18:16 | OP.PCM_ITS ---
Report of Operation Date of Procedure: 04/19/24 Pre-Operative Diagnosis: Left intertrochanteric hip fracture Post-Operative Diagnosis: Left intertrochanteric hip fracture Surgery/Procedure Performed:: Left hip cephalomedullary nail Description of Surgical Findings:: Stable reduction Surgeon: Zain Caldwell production control clerk: Juan Diego Pappas Type of Anesthesia: General Anesthesiologist: Asa Luevano Special Medications: Ancef Estimated Blood Loss (mL): 125 Fluids Replaced: 300 Description of Procedure: Components used: 1. [employer] InterTAN nail short 125 degree, 10 mm nail 2. [employer] InterTAN lag screw 90 mm Brief history operative indications: 69-year-old female sustained a mechanical fall presented with left intertrochanteric hip fracture. After extensive discussion including risk and benefits which include but are not limited to blood loss, PEs, DVTs, neurovascular damage, nonunions, malunions and screw cut out patient has elected to proceed with a left cephalo-medullary nail. Procedure: On the date of the procedure the patient's left hip was marked in the preoperative area and patient was taken back to the operating room. Anesthetic was administered and patient was transferred to the table were all bony prominence identified well-padded and the ipsilateral arm was placed across the chest. Patient was then translated down to the perineal post and the operative leg was placed in the boot while the nonoperative leg was lowered and secured. The operative leg was placed in traction and internal rotation and live fluoroscopy was used to verify adequate reduction. The operative leg was then prepped in a sterile fashion with chlorhexidine while the surgeon scrubbed. Upon reentering the room the operative extremity was draped in the standard orthopedic fashion. Skin incision was marked and a timeout was called. Everyone agreed upon the side, the site, the procedure be performed, patient's identity, and antibiotics given. Skin incision was made and the position of the entry guidepin was verified using live fluoroscopy. Once we were satisfied with our position the pin was advanced in the soft tissue protector was placed over the pin. The entry reamer was then advanced into the proximal portion of the femur. A [employer] short InterTAN 10 mm 125 hip nail was selected. The nail was then attached to the sports internship and inserted into the intramedullary canal. The appropriate depth was verified and the skin incision for the lag screw was made. The lag screw guidepin was then placed under live fluoroscopy and when a satisfactory position was obtained the length of the screw was measured and the standard technique to drill for the lag screws was performed. The anti-rotation bar was used. At this time a 90 lag screw was selected with its corresponding compression screw. The lag screw was then passed and traction was left off the leg. The compression screw was then passed and the fracture was compressed. The final position of the lag screw was verified under fluoroscopy. Based on the stability of the fracture no interlocking screw was placed distally. Final x-rays were taken of the entire screw as well as the reduced fracture. Once we were satisfied with our positioning the wounds were copiously irrigated out with normal saline skin was closed with 2-0 Vicryl and stephen for final skin closure. A sterile dressing was placed with Xeroform. Patient was then awakened by anesthesia transferred from the fracture table back to their hospital bed and transferred to the PACU for recovery. Postoperative plan: Patient will be weight-bear as tolerated. Aspirin 81 mg p.o. twice daily for DVT prophylaxis with knee-high stockings for will defer to primary medicine service if it is felt further prophylaxis is warranted. Follow up in the office in 2 weeks. Complications none Admit VTE Documentation VTE Present on Admission: No VTE Mechan Device Prophylaxis: SCD's and Thigh High SHANE Hose VTE Pharm Prophylaxis ordered?: Yes
--- NOTE | 2024-04-19 18:25 | RAD_ITS ---
STUDY: X-RAY - PELVIS AND LEFT HIP REASON FOR EXAM: Female, 69 years old. Post Op -- AP both hips on single lucrecia/lateral of op hip PACU TECHNIQUE: 3 views of the pelvis and hip. COMPARISON: None. FINDINGS: There is a non-specific bowel gas pattern. Normal visualized soft tissue structures. Normal bilateral iliac wings, sacroiliac joints and visualized sacrum. Normal bilateral superior and inferior pubic rami. Normal pubic symphysis. Normal bilateral ischial tuberosities. Postsurgical changes status post ORIF intertrochanteric fracture of the left hip with indwelling orthopedic hardware and fracture fragments in near anatomic alignment and position . RAD/Hip Min 2 Views (Portable) IMPRESSION: Status post ORIF intertrochanteric fracture of the left hip ( Electronically Signed: Joey Morley MD at 18:58 EDT ,
[2024-04-19] MEDS: Varenicline 0.5 MG Tablet PO (21:39)
[2024-04-19] MEDS: Cholecalciferol (Vit D3) 125 MCG CAPSULE (5,000 UNITS) PO (21:39)
[2024-04-19] MEDS: Atorvastatin Calcium 10 MG Tablet PO (21:39)
[2024-04-19] MEDS: Aspirin 81 MG TAB.CHEW PO (21:39)
[2024-04-19] MEDS: Pantoprazole Sodium 20 MG Tablet PO (21:40)
[2024-04-19] MEDS: Senna/Docusate Sodium 1 Tablet 2 TABLET PO (21:40)
[2024-04-19] MEDS: Famotidine 20 MG Tablet PO (21:40)
[2024-04-20] MEDS: Cefazolin 1 GM/50 ML BAG IV ×2 (01:46→08:12)
[2024-04-20] MEDS: 0.9% Saline Lock 10 ML Syringe IV ×2 (01:47→08:10)
[2024-04-20 04:05] VITALS: BP 137/65; PULSE 74; RESP 16; TEMP 36.3; O2SAT 99
[2024-04-20] MEDS: Acetaminophen 325 MG Tablet 650 MG PO ×2 (06:06→13:11)
[2024-04-20 06:29] LABS: Hematocrit 35.2 % (37-47); Hemoglobin 11.8 g/dL (12.0-15.0); Mean Corp Hgb Conc 33.5 g/dL (32-36); Mean Corpuscular Hgb 32.9 pg (27.0-32.0); Mean Corpuscular Volume 98.1 fL (81-99); Mean Platelet Vol. 9.2 fl (6.2-12.0); Platelet Count 279 K/mm3 (150-450); RBC Distribution Width CV 11.9 % (11.6-14.6); RBC Distribution Width SD 43.5 fl (35.1-43.9); Red Blood Count 3.59 M/mm3 (4.2-5.4); White Blood Count 11.1 K/mm3 (4.4-11.0)
[2024-04-20 07:12] LABS: Anion Gap 4 (5-15); BUN 18 mg/dL (7-18); BUN/Creat Ratio 24.2 RATIO (10-20); Calcium,Total 9.3 mg/dL (8.5-10.1); Chloride 103 mmol/L (98-107); Creatinine, Serum 0.74 mg/dL (0.55-1.02); EST Glomerular Filtration Rate 83 mL/min (>60); Est Glom Filt Rate - Afr Amer 100 mL/min (>60); Estimated Creatinine Clearance 58.93 ml/min; Glucose 145 mg/dL (74-106); Potassium 4.1 mmol/L (3.5-5.1); Sodium Level 135 mmol/L (136-145)
--- NOTE | 2024-04-20 07:22 | PN.ORTHO_ITS ---
Subjective Subjective Patient doing well this morning. No acute events overnight. Stable comfortable this morning. No complaints of chest pain or shortness of breath. Reports improved comfort. Patient notes she has been up standing with the staff so far this morning. Objective Data Objective Data Vital Signs: Vital Signs Temp Pulse Resp BP Pulse Ox O2 Del Method O2 Flow Rate 97.3 F L 74 16 137/65 H 99 Nasal Cannula 2 04/20/24 04:05 04/20/24 04:05 04/20/24 04:05 04/20/24 04:05 04/20/24 04:05 04/20/24 04:05 04/20/24 04:05 Oxygen Flow Rate (L/min) 2 Oxygen Delivery Method Nasal Cannula Weight: 138 lb 14.259 oz Body Mass Index (BMI) 23.7 Intake & Output: Intake and Output for Last 24 Hours 04/18/24 04/19/24 04/20/24 23:59 23:59 23:59 Intake Total 500 / 700 920 / 920 450 / 450 Output Total 975 / 975 500 / 500 Balance 500 / 700 -55 / -55 -50 / -50 Lab / Micro Data Attestation: I reviewed the patient's lab results. 04/20/24 06:00 04/20/24 06:00 Labs: Laboratory Results - last 24 hr 04/19/24 05:40: Blood Type A NEGATIVE, Antibody Screen NEGATIVE 04/20/24 06:00: WBC 11.1 H, RBC 3.59 L, Hgb 11.8 L, Hct 35.2 L, MCV 98.1, MCH 32.9 H, MCHC 33.5, RDW Std Deviation 43.5, RDW Coeff of Norma 11.9, Plt Count 279, MPV 9.2, Sodium 135 L, Potassium 4.1, Chloride 103, Carbon Dioxide 27.0, Anion Gap 4 L, BUN 18, Creatinine 0.74, Estim Creat Clear Calc 58.93, Est GFR (MDRD) Af Amer 100, Est GFR (MDRD) Non-Af 83, BUN/Creatinine Ratio 24.2 H, Glucose 145 H, Calcium 9.3 Radiography Diagnostic Testing: Radiology Impression Hip/Pelvis X-Ray 04/19/24 17:20 IMPRESSION: ORIF of intertrochanteric fracture. Electronically Signed: Michael Singleton MD at 19:16 EDT , Hip X-Ray 04/19/24 18:25 IMPRESSION: Status post ORIF intertrochanteric fracture of the left hip ( Electronically Signed: Joey Morley MD at 18:58 EDT , Physical Exam Const alert, oriented x3 and no apparent distress General Appearance: cooperative and comfortable Extremity Extremity Narrative: Left lower extremity: Dressing is clean dry and intact Sensations intact to light touch saphenous, sural, superficial peroneal, deep peroneal, and tibial distributions Motors intact EHL, DF, PF calves are soft and supple Assessment & Plan Assessment/Plan (1) Intertrochanteric fracture of left hip: PLAN: Patient is postop day 1 left hip cephalomedullary nail for intertrochanteric hip fracture 1. Pain control: Patient is currently control, primary service manage pain 2. DVT prophylaxis: Patient is currently on aspirin 81 mg p.o. twice daily for DVT prophylaxis. She be maintained for at least 4 weeks postop 3. Physical therapy: Patient is weight-bear as tolerated 4. Disposition: Patient be ready for discharge when medically stable. No further orthopedic intervention needed. Patient's desires to go home postoperatively however have had discussions that with hip fracture she may require mcfp or rehabilitation prior to discharge home. Discharge destination will be attempted depending on how patient progresses with physical therapy over the weekend. Patient should have postop visit with orthopedics in 2 weeks. [place] can be removed in 2 weeks. Will repeat x-rays in office in 2 weeks. Please call orthopedics for any further questions or concerns. [facility] Office:
--- NOTE | 2024-04-20 07:32 | PN.HOSP_ITS ---
Reason for Visit Reason for Visit: Diagnoses Fracture of unspecified part of neck of left femur, initial encounter for closed fracture (04/18/24) Displaced intertrochanteric fracture of left femur, initial encounter for closed fracture (04/18/24) Subjective Subjective Feeling better after surgery. Objective Data Objective Data Vital Signs: Vital Signs Temp Pulse Resp BP Pulse Ox O2 Del Method O2 Flow Rate 36.3 C L 74 16 137/65 H 99 Nasal Cannula 2 04/20/24 04:05 04/20/24 04:05 04/20/24 04:05 04/20/24 04:05 04/20/24 04:05 04/20/24 04:05 04/20/24 04:05 Oxygen Flow Rate (L/min) 2 Oxygen Delivery Method Nasal Cannula Weight: 63 kg Body Mass Index (BMI) 23.7 Intake & Output: Intake and Output for Last 24 Hours 04/18/24 04/19/24 04/20/24 23:59 23:59 23:59 Intake Total 500 / 700 920 / 920 450 / 450 Output Total 975 / 975 500 / 500 Balance 500 / 700 -55 / -55 -50 / -50 Lab / Micro Data 04/20/24 06:00 04/20/24 06:00 Labs: Laboratory Results - last 24 hr 04/19/24 05:40: Blood Type A NEGATIVE, Antibody Screen NEGATIVE 04/20/24 06:00: WBC 11.1 H, RBC 3.59 L, Hgb 11.8 L, Hct 35.2 L, MCV 98.1, MCH 32.9 H, MCHC 33.5, RDW Std Deviation 43.5, RDW Coeff of Norma 11.9, Plt Count 279, MPV 9.2, Sodium 135 L, Potassium 4.1, Chloride 103, Carbon Dioxide 27.0, Anion Gap 4 L, BUN 18, Creatinine 0.74, Estim Creat Clear Calc 58.93, Est GFR (MDRD) Af Amer 100, Est GFR (MDRD) Non-Af 83, BUN/Creatinine Ratio 24.2 H, Glucose 145 H, Calcium 9.3 Radiography Diagnostic Testing: Radiology Impression Hip/Pelvis X-Ray 04/19/24 17:20 IMPRESSION: ORIF of intertrochanteric fracture. Electronically Signed: Michael Singleton MD at 19:16 EDT , Hip X-Ray 04/19/24 18:25 IMPRESSION: Status post ORIF intertrochanteric fracture of the left hip ( Electronically Signed: Joey Morley MD at 18:58 EDT , Physical Exam Const alert and no apparent distress Resp normal respiratory effort and no retractions Extremity Extremity Narrative: bandaged left hip incision. no edema in LE. Assessment & Plan Assessment/Plan (1) Closed fracture of left hip: PLAN: Plan for OR today. Vitamin D level WNL. 04/19: underwent left hip cephalomedullary nail. PT OT 25 OH-d level 90.8: no replacement needed. PLAN: Plan Chronic conditions * COPD: Currently stable. * Osteoporosis. per history. VTE prophylaxis: SCDs for now. CODE STATUS:: Discussed with the patient. She wishes to be full code. Disposition: plan for SNF. Pt open to that possibility. Charges/Coding Visit Charges Inpatient E&M: 09714 Subs Hosp L1
[2024-04-20 08:05] VITALS: BP 132/70; PULSE 76; RESP 18; TEMP 36.6; O2SAT 99
[2024-04-20] MEDS: Aspirin 81 MG TAB.CHEW PO ×2 (08:08→21:20)
[2024-04-20] MEDS: Varenicline 0.5 MG Tablet PO ×2 (08:09→21:20)
[2024-04-20] MEDS: Senna/Docusate Sodium 1 Tablet 2 TABLET PO (08:09)
[2024-04-20] MEDS: Famotidine 20 MG Tablet PO (08:10)
[2024-04-20] MEDS: Pantoprazole Sodium 20 MG Tablet PO (08:10)
[2024-04-20] MEDS: Cholecalciferol (Vit D3) 125 MCG CAPSULE (5,000 UNITS) PO (08:10)
[2024-04-20] MEDS: oxyCODONE 5 MG Tablet PO (13:11)
[2024-04-20 13:35] VITALS: BP 136/87; PULSE 90; RESP 18; TEMP 37.1; O2SAT 96
[2024-04-20 18:00] VITALS: BP 153/90; PULSE 84; RESP 18; TEMP 36.8; O2SAT 98
[2024-04-20 21:14] VITALS: BP 112/49; PULSE 84; RESP 16; TEMP 36.7; O2SAT 96
[2024-04-20] MEDS: Atorvastatin Calcium 10 MG Tablet PO (21:20)
[2024-04-21 03:30] VITALS: BP 109/53; PULSE 80; RESP 16; TEMP 36.6; O2SAT 98
[2024-04-21] MEDS: Acetaminophen 325 MG Tablet 650 MG PO ×2 (04:16→14:56)
[2024-04-21] MEDS: oxyCODONE 5 MG Tablet PO ×2 (04:17→22:20)
--- NOTE | 2024-04-21 07:38 | PN.HOSP_ITS ---
Reason for Visit Reason for Visit: Diagnoses Fracture of unspecified part of neck of left femur, initial encounter for closed fracture (04/18/24) Displaced intertrochanteric fracture of left femur, initial encounter for closed fracture (04/18/24) Subjective Subjective Feeling well. Still with limited mobility. Objective Data Objective Data Vital Signs: Vital Signs Temp Pulse Resp BP Pulse Ox O2 Del Method O2 Flow Rate 36.6 C 80 16 109/53 L 98 Room Air 2 04/21/24 03:30 04/21/24 03:30 04/21/24 03:30 04/21/24 03:30 04/21/24 03:30 04/21/24 03:30 04/20/24 04:05 Oxygen Flow Rate (L/min) 2 Oxygen Delivery Method Room Air Weight: 63 kg Body Mass Index (BMI) 23.7 Intake & Output: Intake and Output for Last 24 Hours 04/19/24 04/20/24 04/21/24 23:59 23:59 23:59 Intake Total 920 / 920 1700 / 1700 Output Total 975 / 975 1200 / 1600 800 / 800 Balance -55 / -55 500 / 100 -800 / -800 Lab / Micro Data 04/20/24 06:00 04/20/24 06:00 Physical Exam Const alert Constitutional Narrative: Up in chair. Nontoxic. HEENT head/scalp atraumatic and moist oral mucous membranes Neuro Sensorium / Orientation: awake Assessment & Plan Assessment/Plan (1) Closed fracture of left hip: PLAN: 2/2 mechanical fall. 04/19: underwent left hip cephalomedullary nail by Dr. Caldwell PT OT 25 OH-d level 90.8: no replacement needed. Per ortho: follow up in 2 weeks to have stephen removed and follow up xrays. Weight bearing as tolerated. PLAN: Plan Leukocytosis: * was seen in 2013 (last time she had labs at [facility]). Initially was 14.9, then down to 9.3. * Will check UA to ensure no underlying UTI. Chronic conditions * COPD: Currently stable. * Osteoporosis. per history. VTE prophylaxis: ASA 81 BID for 4 weeks. CODE STATUS:: Discussed with the patient. She wishes to be full code. Disposition: plan for SNF. Pt open to that possibility. Medically stable for discharge Charges/Coding Visit Charges Inpatient E&M: 74846 Subs Hosp L1
[2024-04-21 07:46] VITALS: BP 114/55; PULSE 73; RESP 18; TEMP 36.8; O2SAT 95
[2024-04-21] MEDS: Aspirin 81 MG TAB.CHEW PO ×2 (08:35→14:55)
[2024-04-21] MEDS: Pantoprazole Sodium 20 MG Tablet PO (08:35)
[2024-04-21] MEDS: Cholecalciferol (Vit D3) 125 MCG CAPSULE (5,000 UNITS) PO (08:35)
[2024-04-21] MEDS: Varenicline 0.5 MG Tablet PO ×2 (08:35→22:16)
[2024-04-21] MEDS: Famotidine 20 MG Tablet PO (08:36)
[2024-04-21 09:30] VITALS: BP 114/55; PULSE 73; RESP 18; TEMP 36.8; O2SAT 95
[2024-04-21 15:00] VITALS: BP 115/60; RESP 18; TEMP 36.8; O2SAT 96
[2024-04-21 20:00] VITALS: BP 112/57; PULSE 88; RESP 18; TEMP 36.9; O2SAT 100
[2024-04-21] MEDS: Atorvastatin Calcium 10 MG Tablet PO (22:16)
[2024-04-22 02:00] VITALS: BP 104/45; PULSE 83; RESP 18; TEMP 37.1; O2SAT 92
[2024-04-22] MEDS: Acetaminophen 325 MG Tablet 650 MG PO ×2 (03:55→20:31)
[2024-04-22] MEDS: oxyCODONE 5 MG Tablet PO ×2 (03:55→23:25)
[2024-04-22 08:00] VITALS: BP 143/61; PULSE 88; RESP 18; TEMP 36.5
[2024-04-22] MEDS: Varenicline 1 MG Tablet PO ×2 (08:42→20:30)
[2024-04-22] MEDS: Aspirin 81 MG TAB.CHEW PO ×2 (08:42→17:15)
[2024-04-22] MEDS: Famotidine 20 MG Tablet PO (08:47)
[2024-04-22] MEDS: Pantoprazole Sodium 20 MG Tablet PO (08:47)
[2024-04-22] MEDS: Ensure Surgery 237 ML LIQUID PO ×2 (08:47→11:44)
[2024-04-22] MEDS: Cholecalciferol (Vit D3) 125 MCG CAPSULE (5,000 UNITS) PO (11:44)
--- NOTE | 2024-04-22 12:03 | CASEMGMT ---
Addendum entered by Taylor Bansal 04/22/24 14:49: Social Work- SW received notice of [facility] acceptance. SW notified pt of acceptance. Precert started. Plan: [facility]; pend precert BRYAN Skinner Original Note: Social Work- Pt is requesting [facility] as FOC. JIMENA advised. SW will remain available to follow. BRYAN Skinner
--- NOTE | 2024-04-22 12:19 | CASEMGMT ---
Addendum entered by Luana Engle 04/22/24 14:24: [facility] has accepted and will begin precert. SW updated. Luana Engle DC Planning Asst. Original Note: Discharge Planning Referral sent to [facility] via [facility]. Luana Engle DC Planning Asst.
[2024-04-22 14:00] VITALS: BP 120/60; PULSE 96; RESP 20; TEMP 37.2; O2SAT 96
--- NOTE | 2024-04-22 18:25 | PCM.PN.HOSP ---
Reason for Visit Reason for Visit: Diagnoses Fracture of unspecified part of neck of left femur, initial encounter for closed fracture (04/18/24) Displaced intertrochanteric fracture of left femur, initial encounter for closed fracture (04/18/24) Subjective Subjective Patient was seen and examined today, we have are presently awaiting approval for the patient to go to a longterm facility for inpatient skilled services. Patient complains of intermittent leg cramps but otherwise she states she is doing well. Objective Data Objective Data Vital Signs: Vital Signs Temp Pulse Resp BP Pulse Ox O2 Del Method O2 Flow Rate 98.9 F 96 20 H 120/60 96 Room Air 2 04/22/24 14:00 04/22/24 14:00 04/22/24 14:00 04/22/24 14:00 04/22/24 14:00 04/22/24 14:00 04/20/24 04:05 Oxygen Flow Rate (L/min) 2 Oxygen Delivery Method Room Air Weight: 63 kg Body Mass Index (BMI) 23.7 Intake & Output: Intake and Output for Last 24 Hours 04/20/24 04/21/24 04/22/24 23:59 23:59 23:59 Intake Total 1700 / 1700 500 / 850 1900 / 1900 Output Total 1200 / 1600 800 / 800 Balance 500 / 100 -300 / 50 1900 / 1900 Lab / Micro Data 04/20/24 06:00 04/20/24 06:00 Physical Exam Const alert, oriented x3, no apparent distress and average body habitus General Appearance: cooperative, well kempt and well developed Orientation / Consciousness: awake, oriented to person, oriented to place and oriented to time HEENT normocephalic, head/scalp atraumatic and moist oral mucous membranes Eyes PERRL, EOMs intact bilaterally and conjunctivae normal Neck supple, no JVD, thyroid normal and no carotid bruits General: trachea midline Resp normal respiratory effort, no retractions, no use of accessory muscles and clear to auscultation bilaterally Auscultation: Negative for rales, rhonchi or wheezes Cardio regular rate, regular rhythm, S1 normal heart sound, S2 normal heart sound, no murmurs, no rub and no gallops GI normal to inspection, nondistended, normoactive bowel sounds, soft to palpation, non-tender and non-distended Extremity no clubbing, cyanosis or edema Skin no rashes or lesions noted General Skin Exam: no breakdown Neuro oriented x3, CN's II-XII intact bilaterally, moves all extremities, no focal motor deficits and no sensory deficits noted Sensorium / Orientation: awake and alert Speech: speech normal Psych affect normal Assessment & Plan Assessment/Plan (1) Intertrochanteric fracture of left hip: PLAN: Plan 1. Intertrochanteric fracture of the left hip-status post insertion of left hip cephalic medullary nail-continue PT and OT, patient will need temporary placement in a longterm facility for rehab services. #2 hyperlipidemia-patient is on statin #3 GERD-patient is on a PPI Total clinical time spent by myself addressing the patient's medical issues, reviewing all of her data, and collaborating with patient's care team: 35 minutes Charges/Coding Visit Charges Inpatient E&M: 50989 Subs Hosp L2
[2024-04-22] MEDS: Senna/Docusate Sodium 1 Tablet 2 TABLET PO (20:30)
[2024-04-22] MEDS: Atorvastatin Calcium 10 MG Tablet PO (20:30)
[2024-04-22 21:00] VITALS: PULSE 85; RESP 16; O2SAT 96
[2024-04-22 21:15] VITALS: BP 115/44; PULSE 81; RESP 16; TEMP 37; O2SAT 94
[2024-04-23 02:43] VITALS: BP 92/66; PULSE 85; RESP 16; TEMP 36.7; O2SAT 96
[2024-04-23] MEDS: Acetaminophen 325 MG Tablet 650 MG PO (05:45)
[2024-04-23 08:45] VITALS: BP 114/74; BP 125/50; PULSE 85; PULSE 92; RESP 16; TEMP 36.6; TEMP 37.2; O2SAT 96; O2SAT 99
[2024-04-23] MEDS: Pantoprazole Sodium 20 MG Tablet PO (08:52)
[2024-04-23] MEDS: Cholecalciferol (Vit D3) 125 MCG CAPSULE (5,000 UNITS) PO (08:52)
[2024-04-23] MEDS: Aspirin 81 MG TAB.CHEW PO (08:52)
[2024-04-23] MEDS: Ensure Surgery 237 ML LIQUID PO (08:52)
[2024-04-23] MEDS: Varenicline 1 MG Tablet PO (08:53)
[2024-04-23 09:00] VITALS: RESP 18
[2024-04-23] MEDS: Famotidine 20 MG Tablet PO (09:06)
--- NOTE | 2024-04-23 09:25 | CASEMGMT ---
Addendum entered by Luana Engle 04/23/24 09:42: Physician updated. Luana Engle DC Planning Asst. Original Note: Discharge Planning [facility] has obtained auth to admit. SW updated. Luana Engle DC Planning Asst.
--- NOTE | 2024-04-23 11:11 | PCM.TXEXTCAR ---
Diet Diet Order/Speech Therapy: 04/20/24 03:54 Diet: Regular - General Routine Orders/Code Status Code Status: Full Code Wound(s) LEFT HIP: Wound Type: Surgical Incision Therapies Weight Bearing: Weight bearing as tolerated Physical Therapy: Eval and Treat Occupational Therapy: Eval and Treat Problem/Diagnosis (1) Intertrochanteric fracture of left hip: Status: Acute Code(s): S72.142A - Displaced intertrochanteric fracture of left femur, initial encounter for closed fracture Plan 1. Intertrochanteric fracture of the left hip-status post insertion of left hip cephalic medullary nail-continue PT and OT, patient will need temporary placement in a halfway facility for rehab services. #2 hyperlipidemia-patient is on statin #3 GERD-patient is on a PPI Total clinical time spent by myself addressing the patient's medical issues, reviewing all of her data, and collaborating with patient's care team: 35 minutes Allergies/Procedures Done in Hospital Allergies amoxicillin (Amoxicillin) Allergy (Verified 04/18/24 13:08) Rash Penicillins (PCN) Allergy (Verified 04/18/24 13:08) Hives Procedures: - (Left hip cephalomedullary nail) Type of Care/Length of Stay Estimated LOS: Convalescent Care Less Than 30 days Type of Care Needed: Skilled Rehab Potential: Good Prognosis: Good Additional Orders/Day of Discharge H&P will serve as current which was dated: 04/18/24 Day of Discharge: 04/23/24 Discharge Plan Admission Admit Date/Time: 04/18/24 12:40 Primary Reason for Your Visit: Left intertrochanteric hip fracture Attending Provider: Paul Gee Primary Care Provider: Jenn Wisdom Consulting Providers: Zain Caldwell; Tian Amaro Instructions Additional Instructions / Restrictions: Continue present aspirin dosage for 1 month then discontinue-this is used for DVT prophylaxis Discharge Orders/Prescriptions Prescriptions: New oxycodone 5 mg Tablet 5 mg PO Q4H PRN PRN (Reason: Pain Score 4-10) 2 Days Qty: 6 0RF varenicline 1 mg Tablet 1 mg PO BID Qty: 0 0RF aspirin 81 mg Tablet,Chewable 81 mg PO BIDCM Qty: 0 0RF Continued famotidine 20 mg tablet 20 mg PO DAILY simvastatin 20 mg tablet 20 mg PO QHS omeprazole 20 mg capsule,delayed release(DR/EC) 20 mg PO DAILY multivitamin [Daily Multi-Vitamin] Tablet 1 tab PO DAILY cholecalciferol (vitamin D3) [Vitamin D3] 125 mcg (5,000 unit) tablet 125 mcg PO DAILY Discontinued varenicline 0.5 mg (11)- 1 mg (42) tablets,dose pack See Rx Instructions PO .COMPLEX Patient Comments: PT STARTED MONDAY NIGHT, PT CURRENTLY ON DAY 4, TOOK 1ST DOSE Rx Instructions: orally TAKE 0.5MG ONCE DAILY ON DAYS 1-3, THEN 0.5MG TWICE DAILY ON DAYS 4-7, THEN 1MG TWICE DAILY THERAFTER; vitamin E 268 mg (400 unit) capsule 268 mg PO DAILY omega 4-kql-hhl-fish oil [Fish Oil] 1,200 (144-216) mg capsule 1 cap PO DAILY Referrals / Follow Up: Jenn Wisdom MD [Primary Care Provider] - Zain Caldwell MD [Med Staff - Active Staff] - See Referral Note (In 2 weeks-call for an appointment) Disposition Disposition (needs filled in before D/C Order can be placed[facility]
[2024-04-23 11:24] VITALS: BP 120/49; PULSE 82; RESP 16; TEMP 36.5; O2SAT 97
--- NOTE | 2024-04-23 11:24 | DS.PCM_ITS ---
Providers Date of Admission: 04/18/24 Date of Discharge: 04/23/24 Primary Care Physician: Dr. Jenn Wisdom MD Consultations 04/18/24 15:34 Consult: Orthopedics Routine Consulting Provider: Zain Caldwell Reason for Consult: hip fx EMERGENT Consult: No MD Notified: Yes Date Notified: 04/18/24 Time Notified: 15:35 Method of Notification: ED Physician Initiated Reason For Visit: HIP FXR Diagnosis Discharge Diagnosis (1) Intertrochanteric fracture of left hip: Status: Acute Code(s): S72.142A - Displaced intertrochanteric fracture of left femur, initial encounter for closed fracture Plan 1. Intertrochanteric fracture of the left hip-status post insertion of left hip cephalic medullary nail-continue PT and OT, patient will need temporary placement in a half-way facility for rehab services. #2 hyperlipidemia-patient is on statin #3 GERD-patient is on a PPI Total clinical time spent by myself addressing the patient's medical issues, reviewing all of her data, and collaborating with patient's care team: 35 minutes Medications at Discharge Home Medications cholecalciferol (vitamin D3) 125 mcg (5,000 unit) tablet (Vitamin D3) 125 mcg PO DAILY 04/18/24 famotidine 20 mg tablet 20 mg PO DAILY 04/18/24 multivitamin (Daily Multi-Vitamin tablet) 1 tab PO DAILY 04/18/24 omeprazole 20 mg capsule,delayed release 20 mg PO DAILY 04/18/24 simvastatin 20 mg tablet 20 mg PO QHS 04/18/24 aspirin 81 mg chewable tablet 81 mg PO BIDCM #0 tabs 04/23/24 oxycodone 5 mg tablet 5 mg PO Q4H PRN PRN Pain Score 4-10 2 days #6 tabs 04/23/24 varenicline 1 mg tablet 1 mg PO BID #0 tabs 04/23/24 Hospital Course Operations - (Left hip cephalo medullary nail insertion) Procedures None Summary of Care Provided Minutes Spent on Discharge: 31 Hospital Course: This 69-year-old white female was seen in the emergency room at [facility] after sustaining a fall and landing on her left side. Patient experienced pain in her left hip as well as her left ribs. Workup in the emergency room for found the patient have a left intertrochanteric hip fracture, CBC was remarkable for a white blood cell count of 14.9. Patient was admitted to [place] [address], she was seen in consultation by orthopedic surgery and she underwent insertion of a left hip cephalo medullary nail. There were no complications during surgery or afterwards, she was seen by PT and OT and was felt to be appropriate for short-term placement in half-way facility which she agreed to. On 04/23/2024, patient was seen and examined: On examination she appeared in good health and spirits, she does not appear to be in any distress. Vital signs as documented. Skin warm and dry and without overt rashes. Neck without JVD, thyroid appears normal, trachea is midline, neck is supple. Lungs clear, normal air movement was noted. Heart exam notable for regular rhythm, normal sounds and absence of murmurs, rubs or gallops. Abdomen unremarkable and without evidence of organomegaly, masses, or abdominal aortic enlargement, bowel sounds are present in all 4 quadrants, no abdominal tenderness was noted. Extremities nonedematous, no cyanosis was noted, no clubbing was noted. Neuro: Cranial nerves II through XII are grossly intact, no focal motor deficits were noted, sensation to light touch and pinprick is intact, motor exam 5/5 throughout. Psych: Patient is alert and oriented x3, she does not appear anxious or depressed, she does not appear agitated. Patient was discharged to a half-way facility on 04/23/2024 in stable condition. Weight / BMI Weight Weight: 63 kg Body Mass Index (BMI) 23.7 ABG / Lab / Microbiology Data 04/20/24 06:00 04/20/24 06:00 Meaningful Use Info Meaningful Use Meaningful Use Diagnoses (Choose all that apply): None applicable Ischemic Stroke Statin Dosing Therapy Reference: STATIN DOSE THERAPY REFERENCE: * Patients > 75 years receive moderate or high dose statin therapy. * Patients 75 years or YOUNGER should receive HIGH intensity statin dose unless contraindicated. You will be required to document reason for non-treatment if statin daily dose does not meet guidelines. HIGH DOSE STATIN THERAPY DAILY Atorvastatin > than or = to 40 mg Rosuvastatin > than or = to 20 mg Amlodipine + Atorvastatin > than or = to 2.5/40 mg Ezetimibe + Simvastatin 10/80 mg Simvastatin 80mg Discharge Plan Admission Admit Date/Time: 04/18/24 12:40 Primary Reason for Your Visit: Left intertrochanteric hip fracture Attending Provider: Paul Gee Primary Care Provider: Jenn Wisdom Consulting Providers: Zain Caldwell; Tian Amaro Instructions Additional Instructions / Restrictions: Continue present aspirin dosage for 1 month then discontinue-this is used for DVT prophylaxis Discharge Orders/Prescriptions Prescriptions: New oxycodone 5 mg Tablet 5 mg PO Q4H PRN PRN (Reason: Pain Score 4-10) 2 Days Qty: 6 0RF varenicline 1 mg Tablet 1 mg PO BID Qty: 0 0RF aspirin 81 mg Tablet,Chewable 81 mg PO BIDCM Qty: 0 0RF Continued famotidine 20 mg tablet 20 mg PO DAILY simvastatin 20 mg tablet 20 mg PO QHS omeprazole 20 mg capsule,delayed release(DR/EC) 20 mg PO DAILY multivitamin [Daily Multi-Vitamin] Tablet 1 tab PO DAILY cholecalciferol (vitamin D3) [Vitamin D3] 125 mcg (5,000 unit) tablet 125 mcg PO DAILY Discontinued varenicline 0.5 mg (11)- 1 mg (42) tablets,dose pack See Rx Instructions PO .COMPLEX Patient Comments: PT STARTED MONDAY NIGHT, PT CURRENTLY ON DAY 4, TOOK 1ST DOSE Rx Instructions: orally TAKE 0.5MG ONCE DAILY ON DAYS 1-3, THEN 0.5MG TWICE DAILY ON DAYS 4-7, THEN 1MG TWICE DAILY THERAFTER; vitamin E 268 mg (400 unit) capsule 268 mg PO DAILY omega 0-yfz-uoy-fish oil [Fish Oil] 1,200 (144-216) mg capsule 1 cap PO DAILY Referrals / Follow Up: Jenn Wisdom MD [Primary Care Provider] - Zain Caldwell MD [Med Staff - Active Staff] - See Referral Note (In 2 weeks- call for an appointment) Disposition Disposition (needs filled in before D/C Order can be placed): [facility] Facility Charges/Coding Visit Charges Inpatient E&M: 04449 Disch Hosp >30min
--- NOTE | 2024-04-23 11:40 | CASEMGMT ---
Social Work Precert has been obtained.? Physician updated and pt is ready for discharge today.? 7000 convalescent form completed in [facility]. SW met with pt and they are agreeable to discharge plan as stated above.? [facility] notified of discharge. Disposition:[facility], skilled level of care under convalescent stay. BRYAN Skinner
--- NOTE | 2024-04-23 11:54 | CASEMGMT ---
Discharge Planning Discharge orders, signed med list, and transport time sent via [facility] to . Physicians will transport patient by wheelchair at . Nursing, SW, and patient updated. Pt updated family. Luana Engle DC Planning Asst.
[2024-04-23] MEDS: oxyCODONE 5 MG Tablet PO (12:03)
--- NOTE | 2024-04-23 12:10 | PHA.DC.MR.R ---
Pharmacy [place] Med Reconciliation Pharmacy Service has performed discharge medication reconciliation for this patient. The patient's discharge medication list was reviewed for discrepancies and discrepancies were resolved. Medications at Discharge Home Medications cholecalciferol (vitamin D3) 125 mcg (5,000 unit) tablet (Vitamin D3) 125 mcg PO DAILY 04/18/24 famotidine 20 mg tablet 20 mg PO DAILY 04/18/24 multivitamin (Daily Multi-Vitamin tablet) 1 tab PO DAILY 04/18/24 omeprazole 20 mg capsule,delayed release 20 mg PO DAILY 04/18/24 simvastatin 20 mg tablet 20 mg PO QHS 04/18/24 aspirin 81 mg chewable tablet 81 mg PO BIDCM #0 tabs 04/23/24 oxycodone 5 mg tablet 5 mg PO Q4H PRN PRN Pain Score 4-10 2 days #6 tabs 04/23/24 varenicline 1 mg tablet 1 mg PO BID #0 tabs 04/23/24
== END 2024-04-23 12:50 | disposition skilled nursing facility (03) | DRG 482 ==
LOC: ED 12:30 → MS3 13:11
PROVIDERS: Specialist; Emergency Provider Emergency Medicine; PCP Internal Medicine; Visit Provider Internal Medicine
PROC: 0QS736Z Reposition Left Upper Femur with Intramedullary Internal Fixation Device, Percutaneous Approach (ICD-10-PCS; CPT 27245; principal; 2024-04-19 15:15)
DX: S72.142A Displaced intertrochanteric fracture of left femur, initial encounter for closed fracture (principal); E78.5 Hyperlipidemia, unspecified; J43.9 Emphysema, unspecified; S20.212A Contusion of left front wall of thorax, initial encounter; W18.09XA Striking against other object with subsequent fall, initial encounter; K21.9 Gastro-esophageal reflux disease without esophagitis; F17.210 Nicotine dependence, cigarettes, uncomplicated; M81.0 Age-related osteoporosis without current pathological fracture; Z79.82 Long term (current) use of aspirin; Z79.899 Other long term (current) drug therapy; Z90.710 Acquired absence of both cervix and uterus
CPT/HCPCS: 36415; 71045; 73501; 73502; 76000; 80048; 80053; 82306; 85025; 85027; 85610; 86850; 86900; 86901; 93005; 94640; 94668; 97110; 97116; 97162; 97166; 97535; 99252; 99282; 99406; C1713; J7120; A4216; G0463; J2405